=== PATIENT | female | born 1990 | race Caucasian/White ===

== ENCOUNTER 2018-03-05 03:55 | Outpatient (CLI) ==
[2014-12-03 17:54] VITALS: BMI 34.7
== END 2018-03-05 04:12 | disposition short-term general hospital (02) ==
LOC: AMBL 03:55
PROVIDERS: ATTEND Family Medicine
DX: R07.9 Chest pain, unspecified (principal)

== ENCOUNTER 2018-06-29 22:39 | Emergency (ER) ==
[2018-06-29 22:50] VITALS: BP 152/84; TEMP 97.6; BMI 36.6
--- NOTE | 2018-06-30 00:08 | CT ---
EXAM: CT of the left ankle without contrast. HISTORY: Trauma. PROCEDURE: Contiguous axial CT images of the left ankle without contrast with coronal and sagittal r eformats. FINDINGS: The bones are intact with no evidence of fracture. The joint spaces are maintained. No so ft tissue abnormality. Impression: Negative left ankle.
--- NOTE | 2018-06-30 00:24 | CT ---
Exam: CT of the left foot History: Injury and pain Technique: [address] of the left foot with multiplanar reformations FINDINGS: No fracture lines are suspicious bony lesions. Minor spurring on the plantar surface of t he calcaneus. No degenerative change. No surrounding soft tissue abnormality. Impression: 1. No abnormality of the left foot.
--- NOTE | 2018-06-30 00:32 | ED.PDOC ---
General ED Provider: Dr. JULIETA EMANUEL-ER Chief Complaint: Foot Pain/Injury Stated Complaint: i hurt my foot and ankle Time Seen by Physician: 22:40 Mode of Arrival: Wheelchair Information Source: Patient, Family Exam Limitations: No limitations Nursing and Triage Documentation Reviewed and Agree: Yes Does patient meet sepsis criteria?: No System Inflammatory Response Syndrome: Not Applicable Sepsis Protocol: For patient's 13 years and over: Temp is 96.8 and below OR 101 and greater Pulse >90 BPM Resp >20/minute Acutely Altered Mental Status Are patient's symptoms suggestive of a new infection, such as: -Pneumonia -Skin, Soft Tissue -Endocarditis -UTI -Bone, Joint Infection -Implantable Device -Acute Abdominal Infection -Wound Infection -Meningitis -Blood Stream Catheter Infection -Unknown Musculoskeletal Complaint Exam - Ankle/Foot Complaint/Exam Location of Injury: Reports: Left Mechanism of Injury: Reports: Trauma Symptoms Are: Reports: Still present Onset of Pain: Reports: Immediate Initial Severity: Mild Current Severity: Mild Location: Reports: Discrete Character: Reports: Dull, Aching Aggravating: Reports: Movement Able to Bear Weight: No Associated Signs and Symptoms: Reports: Swelling, Bruising Related History: Reports: Similar episode Lower Extremity Findings: Present: Swelling, Ecchymosis Achilles Tendon Abnormality: No Tenderness: Present: Lateral malleolus Review of Systems - Review Of Systems Constitutional: Reports: No symptoms Eyes: Reports: No symptoms Ears, Nose, Mouth, Throat: Reports: No symptoms Respiratory: Reports: Other Cardiac: Reports: No symptoms GI: Reports: No symptoms : Reports: No symptoms Musculoskeletal: Reports: Joint pain, Joint swelling Skin: Reports: No symptoms Neurological: Reports: No symptoms Endocrine: Reports: No symptoms Hematologic/Lymphatic: Reports: No symptoms All Other Systems: Reviewed and Negative Past Medical History - Past Medical History Previously Healthy: Yes Endocrine: Reports: None Cardiovascular: Reports: None Respiratory: Reports: None Hematological: Reports: None Gastrointestinal: Reports: None Genitourinary: Reports: None Neuro/Psych: Reports: None Musculoskeletal: Reports: Unknown Cancer: Reports: None Last Menstrual Period: 60-70 DAYS PERIODS ARE IRREGULAR - Surgical History General Surgical History: Reports: Unknown - Family History Family History: Reports: Unknown - Social History Smoking Status: Current every day smoker, Heavy tobacco smoker Hx Substance Use: Yes (ALCOHOL WITH REHAB) Alcohol Screening: None - Immunizations Tetanus Shot up to Date: (UNKNOWN) Physical Exam - Physical Exam Appearance: Well-appearing, No pain distress, Well-nourished Pain Distress: Mild Eyes: RUPAL, EOMI, Conjunctiva clear ENT: Ears normal, Nose normal, Oropharynx normal Neck: Supple Respiratory: Airway patent, Breath sounds clear, Breath sounds equal, Respirations nonlabored Cardiovascular: RRR, Pulses normal, No rub, No murmur GI/: Soft, Nontender, No masses, Bowel sounds normal, No Organomegaly Musculoskeletal: Limited ROM Skin: Warm, Dry, Normal color Neurological: Sensation intact, Motor intact, Reflexes intact, Cranial nerves intact, Alert, Oriented Psychiatric: Affect appropriate, Mood appropriate Interpretation - Radiology Interpretation Radiology Interpretation By: Radiologist Radiology Results: Negative Exam Interpreted: CT Scan Critical Care Note - Critical Care Note Total Time (mins): 0 Course - Course Orders, Labs, Meds: Lab Review 06/29/18 23:05 Serum , Qual Negative Orders Category Date Time Status SERUM Stat LAB 06/29/18 23:[address] ANKLE LEFT WITHOUT CONTRAST Stat RADS 06/29/18 22:[address] FOOT LEFT WITHOUT CONTRAST Stat RADS 06/29/18 22:55 Completed Vital Signs: Temp Pulse Resp BP Pulse Ox 06/29/18 22:39 97.6 F 89 20 152/84 H 96 Departure - Departure Time of Disposition: 00:31 Disposition: HOME SELF-CARE Discharge Problem: Injury of foot Instructions: Ankle Sprain (ED) Condition: Good Pt referred to PMD for follow-up: Yes IPMP verified?: No Additional Instructions: stay in splint and crutches---motrin for pain---f/u with pcp Allergies/Adverse Reactions: Allergies doxycycline Adverse Reaction (Verified 06/29/18 22:50) Hives hydrocodone Adverse Reaction (Verified 06/29/18 22:50) Unknown Sulfa (Sulfonamide Antibiotics) Adverse Reaction (Verified 06/29/18 22:50) [place] Home Medications: Ambulatory Orders 1 [No Reported Medications] 12/03/14 Disposition Discussed With: Patient, Family
== END 2018-06-30 00:39 | disposition home or self-care (01) ==
LOC: ED 22:39
DX: S99.912A Unspecified injury of left ankle, initial encounter (principal); S99.922A Unspecified injury of left foot, initial encounter; F17.210 Nicotine dependence, cigarettes, uncomplicated
CPT/HCPCS: 36415; 84703; 99283